=== PATIENT | female | born 1990 | race Two or more races ===

== ENCOUNTER 2016-03-13 20:12 | Emergency (ER) | payer OTHER ==
[2016-03-13 20:24] LABS: COLOR YELLOW; LEUKOCYTE ESTERASE,URINE NEGATIVE (NEGATIVE); NITRITE,URINE NEGATIVE (NEGATIVE); PH,URINE 5.5 (5.0-7.5)
[2016-03-13 20:29] VITALS: BP 118/82; PULSE 84; RESP 18; TEMP 98.4; O2SAT 96
[2016-03-13 20:31] LABS: RBC,URINE 15-25 /hpf (0-3); WBC,URINE OCCASIONAL /hpf (0-3)
[2016-03-13 20:32] LABS: BACTERIA 1+ /hpf (NONE SEEN); HYALINE CASTS OCCASIONAL /lpf (0-1); MUCUS 3+ /lpf (NONE-1+)
[2016-03-13] MEDS ORDERED: FLUCONAZOLE 150 MG TAB PO ONE (20:58)
--- NOTE | 2016-03-13 21:01 | UCPHY ---
H & P Time Seen by Provider: 03/13/16 20:38 Patient Type: Established HPI/ROS: 25-year-old female presents complaining of yeast infection and bacterial vaginosis, she states she has had this multiple times before and this is exactly how it felt Review of systems General no fever no chills no weakness HEENT no eye pain no eye discharge. No eye redness, no sore throat Respiratory no cough, no shortness of breath Cardiac no chest pain, no peripheral edema GI no abdominal pain, no diarrhea, no constipation, no nausea, no vomiting no flank pain, no hematuria, no dysuria, positive vaginal discharge Musculoskeletal no myalgias, no joint pain Heme no easy bruising, no easy bleeding Endo no polyuria, no polydipsia Skin no rashes, no pruritus Neuro no syncope, no dizziness, no headaches Psych is no suicidal ideation, no homicidal ideation Past Medical/Surgical History: Attention deficit hyperactivity disorder Bacterial vaginosis Yeast infections Social History: Denies alcohol or drug use Smoking Status: Never smoked Physical Exam: Alert and oriented in no acute distress nontoxic appearance, afebrile Atraumatic normocephalic Neck no JVD Lungs clear to auscultation, no respiratory distress Heart regular rate and rhythm Extremities no cyanosis clubbing edema Constitutional: Initial Vital Signs Temperature (C) 36.9 C 03/13/16 20:26 Heart Rate 84 03/13/16 20:26 Respiratory Rate 18 03/13/16 20:26 Blood Pressure 118/82 H 03/13/16 20:26 O2 Sat (%) 96 03/13/16 20:26 O2 Delivery Mode Room Air Allergies/Adverse Reactions: No Known Allergies Allergy (Verified 01/07/16 17:50) Home Medications: Medication Instructions Recorded Adderall 10 mg Tablet 03/13/16 Fluconazole [Diflucan (*)] 150 mg PO ONCE #0 tab 03/13/16 Metronidazole [Metrogel-Vaginal] 70 gm VG DAILY #5 gel.w.appl 03/13/16 metroNIDAZOLE [Metrogel-Vaginal] 5 gm VG BID #10 gel.w.appl 03/13/16 Medical Decision Making ED Course/Re-evaluation: Patient presents complaining of typical vaginal discharge with pain at her IUD with yeast infection and bacterial vaginosis Impression Clinically appears like BV with yeast Plan Diflucan Metrogel, twice daily x5 days 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 - Data Points Laboratory Results: 03/13/16 20:15 Urine Color YELLOW Urine Appearance HAZY Urine pH 5.5 (5.0-7.5) Ur Specific Villalba >= 1.030 (1.002-1.030) Urine Protein TRACE H (NEGATIVE) Urine Ketones NEGATIVE (NEGATIVE) Urine Blood 2+ H (NEGATIVE) Urine Nitrate NEGATIVE (NEGATIVE) Urine Bilirubin NEGATIVE (NEGATIVE) Urine Urobilinogen 0.2 EU (0.2-1.0) Ur Leukocyte Esterase NEGATIVE (NEGATIVE) Urine RBC 15-25 H /hpf (0-3) Urine WBC OCCASIONAL /hpf (0-3) Ur Epithelial Cells 1+ /lpf (NONE-1+) Urine Bacteria 1+ H /hpf (NONE SEEN) Hyaline Casts OCCASIONAL /lpf (0-1) Urine Mucus 3+ H /lpf (NONE-1+) Urine Glucose NEGATIVE (NEGATIVE) Medications Given: Discontinued Medications Fluconazole (Diflucan) 150 mg PO ONCE ONE Stop: 03/13/16 20:59 Last Admin: 03/13/16 21:06 Dose: Not Given Departure - Departure Disposition: Home, Routine, Self-Care Clinical Impression: Yeast vaginitis, Bacterial vaginosis Condition: Good Instructions: Vulvovaginal Candidiasis (ED), Bacterial Vaginosis (ED) Referrals: Fam Angel MD [Primary Care Provider] - As per Instructions Prescriptions: Fluconazole [Diflucan (*)] 150 mg PO ONCE #0 tab Metronidazole [Metrogel-Vaginal] 70 gm VG DAILY #5 gel.w.appl metroNIDAZOLE [Metrogel-Vaginal] 5 gm VG BID #10 gel.w.appl - PQRS PQRS Measurement: na
== END 2016-03-13 21:12 | disposition home or self-care (01) ==
LOC: CED 20:12
DX: N76.0 Acute vaginitis (principal)
CPT/HCPCS: 81003-PO; 81015-PO; 99214-PO; G0463-PO

== ENCOUNTER 2018-07-10 18:19 | Emergency (ER) | payer OTHER | END 2018-07-10 21:38 | disposition home or self-care (01) ==